=== PATIENT | female | born 1960 ===

== ENCOUNTER 2017-11-13 19:40 | Emergency (ER) | payer MEDICAID ==
[2017-11-13 19:58] VITALS: RESP 16; TEMP 98
[2017-11-13] MEDS ORDERED: Sodium Chloride 0.9% 1,000 ML IV STA (20:18)
[2017-11-13] MEDS ORDERED: Iohexol 240 (50 ml) PO ONE (20:18)
--- NOTE | 2017-11-13 20:24 | ED PDOC ---
HPI: Abdomen Time Seen by Provider: 11/13/17 20:00 Chief Complaint (Nursing): Abdominal Pain Chief Complaint (Provider): abdominal pain History Per: Patient History/Exam Limitations: no limitations Onset/Duration Of Symptoms: Days (2), Waxing/Waning Location Of Pain/Discomfort: RLQ, LLQ, Suprapubic Quality Of Discomfort: Cramping Associated Symptoms: Diarrhea Additional Complaint(s): 57 y/o female presents for evaluation of lower abdominal cramping x 2 days. Patient reports multiple episodes of diarrhea with bright red blood yesterday, and two episodes today with darker colored blood. Denies fever, nausea/vomiting , chest pain, shortness of breath, palpitations, urinary symptoms, vagina bleeding/discharge. Past Medical History Reviewed: Historical Data, Nursing Documentation, Vital Signs Vital Signs: Last Vital Signs Temp 98 F 11/13/17 19:54 Pulse 76 11/13/17 19:54 Resp 16 11/13/17 19:54 BP 130/87 11/13/17 19:54 Pulse Ox 97 11/13/17 23:37 - Medical History PMH: Diabetes, Hypercholesterolemia - Surgical History Other surgeries: gastric bypass - Family History Family History: States: No Known Family Hx - Living Arrangements Living Arrangements: With Family - Home Medications Home Medications: Ambulatory Orders Medication Instructions Recorded Ciprofloxacin HCl [Cipro] 500 mg PO BID #19 tab 11/14/17 Dicyclomine [Bentyl] 20 mg PO TID PRN #15 tab 11/14/17 Metronidazole [Flagyl] 500 mg PO TID #29 tablet 11/14/17 - Allergies Allergies/Adverse Reactions: Allergies Allergy/AdvReac Type Severity Reaction Status Date / Time No Known Allergies Allergy Verified 11/13/17 19:58 Review of Systems ROS Statement: Except As Marked, All Systems Reviewed And Found Negative Gastrointestinal: Positive for: Abdominal Pain, Diarrhea, Hematochezia Physical Exam - Reviewed Nursing Documentation Reviewed: Yes Vital Signs Reviewed: Yes - Physical Exam Appears: Positive for: Well, Non-toxic, No Acute Distress Head Exam: Positive for: ATRAUMATIC, NORMAL INSPECTION, NORMOCEPHALIC Skin: Positive for: Normal Color Eye Exam: Positive for: Normal appearance ENT: Positive for: Normal ENT Inspection Cardiovascular/Chest: Positive for: Regular Rate, Rhythm Respiratory: Positive for: Normal Breath Sounds Gastrointestinal/Abdominal: Positive for: Bowel Sounds, Soft, Tenderness (rlq, suprapubic, llq) Rectal: Positive for: Blood Streaked Stool. Negative for: Hemorrhoids, Mass Extremity: Positive for: Normal ROM Neurologic/Psych: Positive for: Alert, Oriented - Laboratory Results Result Diagrams: 11/13/17 20:50 11/13/17 20:50 - ECG O2 Sat by Pulse Oximetry: 97 - Progress ED Course And Treament: labs, urine, CT abd/pelvis, IV fluids EXAM: CT Abdomen and Pelvis With Intravenous Contrast CLINICAL HISTORY: 57 years old, female; Pain and signs and symptoms; Vomiting and other: Diarrhea ; Abdominal pain; Localized; Left lower quadrant (llq); Prior surgery; Surgery date: 6+ months; Surgery type: . Gastric bypass. Hysterectomy; Additional info: Lower abd pain, blood in stool TECHNIQUE: Axial computed tomography images of the abdomen and pelvis with intravenous contrast. All CT scans at this facility use one or more dose reduction techniques, viz.: automated exposure control; ma/kV adjustment per patient size (including targeted exams where dose is matched to indication; i.e. head); or iterative reconstruction technique. Coronal and sagittal reformatted images were created and reviewed. CONTRAST: 95 mL of [id number] administered intravenously. COMPARISON: No relevant prior studies available. FINDINGS: Limitations: Motion artifact - mild. Lung bases: Minimal atelectasis/scarring. Mediastinum: Small hiatal hernia. ABDOMEN: Liver: Unremarkable. No mass. Gallbladder and bile ducts: No calcified stones. No ductal dilation. Pancreas: No ductal dilation. No mass. Spleen: No splenomegaly. Adrenals: No mass. Kidneys and ureters: Too small to characterize lesion within RIGHT kidney. Minimal pelvocaliectasis of kidneys. Stomach and bowel: Postsurgical changes of stomach. Mild to moderate mural thickening distal transverse, descending colon. Minimal stranding within adjacent fat. No obstruction. PELVIS: Appendix: Normal caliber. No inflammation. Bladder: Unremarkable. Reproductive: Unremarkable as visualized. ABDOMEN and PELVIS: Intraperitoneal space: No significant fluid collection. No free air. Bones/joints: No acute fracture. Soft tissues: Moderate-sized paraumbilical hernia containing fat. Vasculature: Minimal atherosclerotic disease of aorta. No aneurysm. Lymph nodes: No pathologically enlarged lymph nodes. IMPRESSION: 1. Colitis, nonspecific. Consider inflammatory, infectious, or ischemic etiologies. 2. Incidental/non-acute findings are described above. On re-eval, patient resting comfortably; states she is feeling better. Patient educated on findings, discharged with rx Cipro (dose given in ED), Flagyl (dose given in ED), Bentyl Advised follow up GI (patient has her own) Return precautions given Disposition - Clinical Impression Clinical Impression: Colitis - Patient ED Disposition Is Patient to be Admitted: No Counseled Patient/Family Regarding: Studies Performed, Diagnosis, Need For Followup, Rx Given - Disposition Disposition: Routine/Home Disposition Time: 23:59 Condition: IMPROVED Prescriptions: Ciprofloxacin HCl [Cipro] 500 mg PO BID #19 tab Dicyclomine [Bentyl] 20 mg PO TID PRN #15 tab PRN Reason: Pain, Mild (1-3) Metronidazole [Flagyl] 500 mg PO TID #29 tablet Instructions: Bloody Stools, Adult (DC) Forms: [employer] (Belarusian) Print Language: ARGENTINE
[2017-11-13] MEDS ORDERED: Iohexol 240 (50 ml) ONE (20:58)
[2017-11-13 21:01] LABS: SQUAMOUS EPITHIAL 3 /hpf (0-5); URINE BACTERIA RARE (<OCC); URINE BILIRUBIN NEGATIVE (NEGATIVE); URINE BLOOD NEGATIVE (NEGATIVE); URINE CLARITY SLIGHTY-CLOUDY (Clear); URINE COLOR YELLOW (YELLOW); URINE GLUCOSE (UA) 50 mg/dL (Normal); URINE LEUKOCYTE ESTERASE NEG Leu/uL (Negative); URINE PROTEIN NEGATIVE (NEGATIVE); URINE UROBILINOGEN 0.2-1.0 mg/dL (0.2-1.0)
[2017-11-13 21:01] LABS: BASO % 0.1 % (0.0-2.0); EOS # 0.3 K/uL (0.0-0.7); EOS % 3.5 % (0.0-4.0); HEMOGLOBIN 11.8 g/dL (12.0-16.0); LYMPH # 2.6 K/uL (1.0-4.3); LYMPH % 34.2 % (20.0-40.0); MEAN CELL VOLUME 75.1 fl (81.0-99.0); MEAN CORPUSCULAR HEMOGLOBIN 23.8 pg (27.0-31.0); MEAN CORPUSCULAR HGB CONC 31.7 g/dL (33.0-37.0); MEAN PLATELET VOLUME 7.6 fl (7.2-11.7); MONO # 0.9 K/uL (0.0-0.8); MONO % 12.5 % (0.0-10.0); NEUT # 3.8 K/uL (1.8-7.0); NEUT % 49.7 % (50.0-75.0); NRBC % 0.1 % (0.0-0.0); RBC 4.94 Mil/uL (3.80-5.20); WHITE BLOOD COUNT 7.6 K/uL (4.8-10.8)
[2017-11-13 21:11] LABS: ALB/GLOB RATIO 1.2 (1.0-2.1); ALBUMIN 4.2 g/dL (3.5-5.0); ALT/SGPT 29 U/L (9-52); AST/SGOT 33 U/L (14-36); BLOOD UREA NITROGEN 15 mg/dl (7-17); CALCIUM 9.2 mg/dL (8.4-10.2); GFR AFRICAN-AMERICAN > 60; GFR NON-AFRICAN AMERICAN > 60
[2017-11-13 21:37] LABS: INR 0.9 (0.9-1.2); PARTIAL THROMBOPLASTIN TIME 38.2 Seconds (25.6-37.1); PROTHROMBIN TIME 10.1 Seconds (9.8-13.1)
[2017-11-13] MEDS ORDERED: Iohexol 300 100 ML IJ ONE (21:46)
[2017-11-13] MEDS ORDERED: Sodium Chloride 0.9% 50 ML IV ONE (21:47)
--- NOTE | 2017-11-13 23:36 | CT ---
EXAM: CT Abdomen and Pelvis With Intravenous Contrast CLINICAL HISTORY: 57 years old, female; Pain and signs and symptoms; Vomiting and other: Diarrhea; Abdominal pain; Localized; Left lower quadrant (llq); Prior surgery; Surgery date: 6+ months; Surgery type: . Gastric bypass. Hysterectomy; Additional info: Lower abd pain, blood in stool TECHNIQUE: Axial computed tomography images of the abdomen and pelvis with intravenous contrast. All CT scans at this facility use one or more dose reduction techniques, viz.: automated exposure control; ma/kV adjustment per patient size (including targeted exams where dose is matched to indication; i.e. head); or iterative reconstruction technique. Coronal and sagittal reformatted images were created and reviewed. CONTRAST: 95 mL of [id number] administered intravenously. COMPARISON: No relevant prior studies available. FINDINGS: Limitations: Motion artifact - mild. Lung bases: Minimal atelectasis/scarring. Mediastinum: Small hiatal hernia. ABDOMEN: Liver: Unremarkable. No mass. Gallbladder and bile ducts: No calcified stones. No ductal dilation. Pancreas: No ductal dilation. No mass. Spleen: No splenomegaly. Adrenals: No mass. Kidneys and ureters: Too small to characterize lesion within RIGHT kidney. Minimal pelvocaliectasis of kidneys. Stomach and bowel: Postsurgical changes of stomach. Mild to moderate mural thickening distal transverse, descending colon. Minimal stranding within adjacent fat. No obstruction. PELVIS: Appendix: Normal caliber. No inflammation. Bladder: Unremarkable. Reproductive: Unremarkable as visualized. ABDOMEN and PELVIS: Intraperitoneal space: No significant fluid collection. No free air. Bones/joints: No acute fracture. Soft tissues: Moderate-sized paraumbilical hernia containing fat. Vasculature: Minimal atherosclerotic disease of aorta. No aneurysm. Lymph nodes: No pathologically enlarged lymph nodes. IMPRESSION: 1. Colitis, nonspecific. Consider inflammatory, infectious, or ischemic etiologies. 2. Incidental/non-acute findings are described above.
[2017-11-14 00:13] VITALS: BP 141/97; PULSE 72; O2SAT 100
== END 2017-11-14 00:12 | disposition home or self-care (01) ==
LOC: H.ER 19:40
DX: K52.9 Noninfective gastroenteritis and colitis, unspecified (principal); E11.9 Type 2 diabetes mellitus without complications; E78.00 Pure hypercholesterolemia, unspecified; Z90.710 Acquired absence of both cervix and uterus; Z98.84 Bariatric surgery status
CPT/HCPCS: 74177; 80053; 81003; 82948; 85025; 85610; 85730; 96360; 99283; G0328; J7030; Q9966; Q9967